=== PATIENT | male | born 1945 | race Caucasian/White ===

== ENCOUNTER 2021-04-27 07:44 | Day surgery (SDC) | payer OTHER ==
[~2021-04-27] VITALS: Ht 172.7 cm; Wt 69.0 kg
[~2021-04-27 07:44] MED LIST: Aspir 8181 MG PO; DOCU100 PO; FAMO20 PO; FURO40 PO; GLUCOSAMINE-CH1 EA48 PO; HYDACE10B PO; MULVITA PO; OMEGA-3 FISH O1 EAC6 PO; OS-CAL PO; PRAV20 PO; QUNOL PO; TERA5 PO; VERA240ER PO; VITAMIN D31000 UNI1 PO
--- NOTE | 2021-04-27 10:52 | NUR ---
PT VERBALIZES UNDERSTANDING WRITTEN AND VERBAL ORDERS. PT IV DC'D. CATH INTACT. PRESSURE DSG IN PLACE. NO BLEEDING NOTED. R SIDED PERMA CATH REMAINS STABLE/CLEAR. VSS. NADN. PT DC TO HOME VIA WC BY S/O.
== END 2021-04-27 11:00 | disposition home or self-care (01) ==
LOC: MHTC 07:44
DX: Z45.2 Encounter for adjustment and management of vascular access device (principal); I12.0 Hypertensive chronic kidney disease with stage 5 chronic kidney disease or end stage renal disease; N18.6 End stage renal disease; D63.1 Anemia in chronic kidney disease; K21.9 Gastro-esophageal reflux disease without esophagitis; E78.5 Hyperlipidemia, unspecified; Z88.0 Allergy status to penicillin; Z79.82 Long term (current) use of aspirin; Z79.899 Other long term (current) drug therapy; Z20.822 Contact with and (suspected) exposure to COVID-19
CPT/HCPCS: 36558; 76937; 77001; 99152; C1750; C1769; C1894; J1644; J2250; J3010; J7040; J7050

== ENCOUNTER 2024-05-28 08:49 | Day surgery (SDC) | payer OTHER ==
[~2024-05-28] VITALS: Ht 172.7 cm; Wt 71.6 kg
[~2024-05-28 08:49] MED LIST changes: +ACYC800 PO; +BANOPHEN25 MG PO; +CITALOPRAM HBR10 MG PO; +LOSA25 PO; +Lactated Ringer's 1,000 ML IV ONE; +OMEP20ER PO; +ONDA4ODT; +ONDA4ODT MM; +Vitamin B-Comp1 EACH PO; +propofoL 40 ML IV ONE
[2024-05-28] MEDS ORDERED: UBID10 (09:25)
[2024-05-28] MEDS ORDERED: BISA5EC (09:25)
[2024-05-28] MEDS ORDERED: [UNRECOGNIZED DRUG - OTHER] (09:26)
[2024-05-28] MEDS ORDERED: Clonazepam0.25 MG (09:31)
[2024-05-28] MEDS ORDERED: Lactated Ringer's 1,000 ML IV ONE (10:17)
[2024-05-28] MEDS ORDERED: NS 500 ML IV ONE (10:17)
[2024-05-28 11:28] VITALS: BP 110/68
== END 2024-05-28 11:20 | disposition home or self-care (01) ==
LOC: ORSCSDS 08:49
PROVIDERS: Specialist
PROC: 0DB68ZX Excision of Stomach, Via Natural or Artificial Opening Endoscopic, Diagnostic (ICD-10-PCS; principal; 2024-05-28 10:15)
PROC: 0DB58ZX Excision of Esophagus, Via Natural or Artificial Opening Endoscopic, Diagnostic (ICD-10-PCS; principal; 2024-05-28 10:15)
DX: K21.9 Gastro-esophageal reflux disease without esophagitis (principal); K44.9 Diaphragmatic hernia without obstruction or gangrene; I12.0 Hypertensive chronic kidney disease with stage 5 chronic kidney disease or end stage renal disease; N18.6 End stage renal disease; Z99.2 Dependence on renal dialysis; Q87.81 Alport syndrome; E78.5 Hyperlipidemia, unspecified; Z79.82 Long term (current) use of aspirin; Z79.899 Other long term (current) drug therapy
CPT/HCPCS: 88305; 88342; J2704; J7120

== ENCOUNTER 2025-04-17 10:53 | Emergency (ER) | payer OTHER ==
[~2025-04-17] VITALS: Ht 172.7 cm; Wt 69.8 kg
[~2025-04-17 10:53] MED LIST changes: +BISA5EC; +Clonazepam0.25 MG; -Lactated Ringer's 1,000 ML IV ONE; +UBID10; +[UNRECOGNIZED DRUG - OTHER]; -propofoL 40 ML IV ONE
[2025-04-17 11:41] LABS: BASOPHILS ABSOLUTE AUTO 0.02 K/mm3 (0.00-0.23); BASOPHILS PERCENT AUTO 0 % (0-2); EOSINOPHILS ABSOLUTE AUTO 0.01 K/mm3 (0.00-0.68); EOSINOPHILS PERCENT AUTO 0 % (0-6); Hematocrit 37.7 % (37.0-53.0); IMMATURE GRAN ABSOLUTE AUTO 0.07 K/mm3 (0.00-0.10); IMMATURE GRAN PERCENT AUTO 1 % (0-1); LYMPHOCYTES ABSOLUTE AUTO 0.32 K/mm3 (0.84-5.20); LYMPHOCYTES PERCENT AUTO 5 % (21-46); MONOCYTES ABSOLUTE AUTO 0.98 K/mm3 (0.16-1.47); MONOCYTES PERCENT AUTO 16 % (4-13); Mean Corpuscular HGB 32.6 pg (26.0-34.0); Mean Corpuscular HGB Conc 34.5 g/dL (31.5-36.5); Mean Corpuscular Volume 95 fL (80-100); Mean Platelet Volume 9.8 fL (9.1-12.4); NEUTROPHILS ABSOLUTE AUTO 4.71 K/mm3 (1.96-9.15); NEUTROPHILS PERCENT AUTO 77 % (41-73); Platelet Count 274 K/mm3 (150-400); RDW Coefficient Variation 12.5 % (11.7-14.2); RDW Standard Deviation 43.3 fL (35.1-46.3); Red Blood Cell Count 3.99 M/mm3 (4.30-5.90); White Blood Cell Count 6.11 K/mm3 (4.00-11.30)
[2025-04-17 12:19] LABS: Albumin, Blood 3.1 g/dL (3.4-5.0); Albumin/Globulin Ratio 0.9 (0.8-1.8); Bilirubin, Total 0.4 mg/dL (0.1-1.0); Bun/Creatinine Ratio 6.2 (12.0-20.0); Calcium, Blood 9.6 mg/dL (8.5-10.1); Creatinine, Blood 9.6 mg/dL (0.60-1.20); Globulin, Blood 3.6 g/dL (2.2-4.0); Potassium, Blood 3.5 mmol/L (3.5-5.5); Total Protein, Blood 6.7 g/dL (6.4-8.2)
[2025-04-17] MEDS ORDERED: Lactated Ringer's 1,000 ML IV ONE (13:15)
[2025-04-17] MEDS ORDERED: Loperamide HCl 2 MG Cap PO ONE (13:15)
--- NOTE | 2025-04-17 13:54 | NUR ---
DIALYSIS NURSE CALLED TO PT RM TO TAKE EFFLUENT FLUID SAMPLE FROM PTS PERITONEAL DIALYSIS PORT. PT SITTING UP IN BED WITH CARE TEAM AT BEDSIDE. OBTAINED APPROX 10-20ML FLUID FROM PD CATHETER AND SENT OFF TO LAB. UNABLE TO GAIN ADDITIONAL FLUID HAVING PT STAND AND REPOSITION. FLUID IS CLEAR AND FREE OF ANY FIBRINS. FOLLOWED ASEPTIC PROTOCOL DURING PROCEDURE.
[2025-04-17 14:30] LABS: Automated BF WBC Count 0.035 K/mm3 (0-999)
[2025-04-17 14:43] LABS: Protein, Body Fluid 0.6 g/dL
[2025-04-17] MEDS ORDERED: rOPINIRole HCl 0.25 MG Tab PO ONE (14:50)
[2025-04-17 15:15] VITALS: BP 170/87
[2025-04-17 16:04] LABS: RBC Count, Body Fluid 8 /mm3 (0-0)
[2025-04-17 16:06] LABS: Body Fluid WBC Count 35 /mm3 (0-999)
[2025-04-17] MEDS ORDERED: PROM25 PO (16:19)
[2025-04-17] MEDS ORDERED: LOPE2C PO (16:19)
[2025-04-17 16:55] LABS: Total Cell Count, Body Fluid 100
[2025-04-17 17:00] LABS: Appearance, Body Fluid Clear (Clear); Color, Body Fluid White (None-Yellow)
== END 2025-04-17 16:33 | disposition home or self-care (01) ==
LOC: ER 10:53
PROVIDERS: Student in an Organized Health Care Education/Training Program
DX: A08.4 Viral intestinal infection, unspecified (principal); Z88.0 Allergy status to penicillin; Z79.82 Long term (current) use of aspirin; Z79.899 Other long term (current) drug therapy
CPT/HCPCS: 74177; 80053; 83690; 84157; 85025; 87070; 87075; 87077; 87186; 87205; 89051; 93005; 93010; 96360-59; 99284-25; A9270; J7120; Q9967

== ENCOUNTER → 2025-05-25 | Outpatient (CLI) | payer OTHER ==
[~2025-05-25] MED LIST changes: +LOPE2C PO; +PROM25 PO
[2025-05-25 16:39] LABS: Source, Urine Voided
[2025-05-25 17:52] LABS: Bilirubin, Urine Neg (Neg); Color, Urine Yellow (P-Yellow); Glucose Qualitative, Urine Neg (Neg); Ketones, Urine Neg (Neg); Leukocyte Esterase, Urine Neg (Neg); Protein, Urine 4+ (Neg); Specific Gravity, Urine 1.015 (1.003-1.022); Urobilinogen, Urine NORM (Normal)
[2025-05-25 18:09] LABS: Red Blood Cells, Urine 0-2 /hpf (0-2); White Blood Cells, Urine 0-2 /hpf (0-5)
== END ==
LOC: LAB SHORT 16:37 → LAB 16:37
PROVIDERS: Hospitalist
DX: R39.9 Unspecified symptoms and signs involving the genitourinary system (principal)
CPT/HCPCS: 81001

== ENCOUNTER 2025-06-03 14:34 | Emergency (ER) | payer OTHER ==
[~2025-06-03] VITALS: Ht 167.6 cm; Wt 81.7 kg
[2025-06-03] MEDS ORDERED: NS 1,000 ML IV SCH (17:35)
[2025-06-03 23:25] VITALS: BP 162/78
== END 2025-06-03 23:26 | disposition home or self-care (01) ==
LOC: ER 14:34
DX: D64.9 Anemia, unspecified (principal); K21.9 Gastro-esophageal reflux disease without esophagitis; I12.0 Hypertensive chronic kidney disease with stage 5 chronic kidney disease or end stage renal disease; N18.6 End stage renal disease; E78.5 Hyperlipidemia, unspecified; Z87.891 Personal history of nicotine dependence; Z79.899 Other long term (current) drug therapy; Z79.82 Long term (current) use of aspirin; Z88.1 Allergy status to other antibiotic agents; Z88.8 Allergy status to other drugs, medicaments and biological substances
CPT/HCPCS: 36430; 86850; 86900; 86901; 86923; 99284; A9270; J7030; P9016

== ENCOUNTER 2025-06-10 18:19 | Observation (INO) | payer OTHER ==
[~2025-06-10] VITALS: Ht 172.7 cm; Wt 67.6 kg
[2025-06-10 18:41] LABS: BASOPHILS ABSOLUTE AUTO 0.02 K/mm3 (0.00-0.23); BASOPHILS PERCENT AUTO 0 % (0-2); EOSINOPHILS ABSOLUTE AUTO 0.02 K/mm3 (0.00-0.68); EOSINOPHILS PERCENT AUTO 0 % (0-6); Hematocrit 26.6 % (37.0-53.0); Hemoglobin 8.6 g/dL (13.5-17.5); IMMATURE GRAN ABSOLUTE AUTO 0.10 K/mm3 (0.00-0.10); IMMATURE GRAN PERCENT AUTO 1 % (0-1); LYMPHOCYTES ABSOLUTE AUTO 0.29 K/mm3 (0.84-5.20); LYMPHOCYTES PERCENT AUTO 2 % (21-46); MONOCYTES ABSOLUTE AUTO 1.06 K/mm3 (0.16-1.47); MONOCYTES PERCENT AUTO 7 % (4-13); Mean Corpuscular HGB Conc 32.3 g/dL (31.5-36.5); Mean Corpuscular Volume 97 fL (80-100); NEUTROPHILS ABSOLUTE AUTO 13.20 K/mm3 (1.96-9.15); NEUTROPHILS PERCENT AUTO 90 % (41-73); NRBC ABSOLUTE 0.00 K/mm3 (0.00-0.02); NRBC Auto 0.0 /100 WBC (0.0-0.2); Platelet Count 277 K/mm3 (150-400); RDW Coefficient Variation 13.7 % (11.7-14.2); RDW Standard Deviation 48.9 fL (35.1-46.3)
[2025-06-10 19:13] LABS: Magnesium, Blood 2.5 mg/dL (1.6-2.4)
[2025-06-10 19:23] LABS: Anion Gap 15.0 mmol/L (3-11); Blood Urea Nitrogen 61.0 mg/dL (8-24); CO2, Blood 24.0 mmol/L (21-32); Calcium, Blood 8.9 mg/dL (8.5-10.1); Chloride, Blood 101.0 mmol/L (98-108); Creatinine, Blood 10.3 mg/dL (0.60-1.20); Glucose, Blood 115.0 mg/dL (70-99); Potassium, Blood 4.6 mmol/L (3.5-5.5); Sodium, Blood 135.0 mmol/L (136-145)
[2025-06-10 23:11] VITALS: BP 148/83
== END 2025-06-10 23:19 | disposition home or self-care (01) ==
LOC: ER 18:19 → PCU 18:20 → ER 18:20 → ERHOLD 18:20
PROVIDERS: Emergency Medicine; ADMIT Internal Medicine
DX: R07.9 Chest pain, unspecified (principal); R79.89 Other specified abnormal findings of blood chemistry; I12.0 Hypertensive chronic kidney disease with stage 5 chronic kidney disease or end stage renal disease; N18.6 End stage renal disease; Z99.2 Dependence on renal dialysis; R78.5 Finding of other psychotropic drug in blood; E55.9 Vitamin D deficiency, unspecified; D63.1 Anemia in chronic kidney disease; K21.9 Gastro-esophageal reflux disease without esophagitis; Z79.82 Long term (current) use of aspirin; Z79.899 Other long term (current) drug therapy; Z88.0 Allergy status to penicillin; Z88.8 Allergy status to other drugs, medicaments and biological substances
CPT/HCPCS: 71045; 80048; 83735; 84484; 85025; 93005; 93010; 99285-25; A9270; G0378

== ENCOUNTER → 2025-08-16 | Outpatient (CLI) | payer OTHER ==
[~2025-08-16] MED LIST changes: -BISA5EC; +BISA5EC PO; +CLON.5; +Calcium Acetat667 MG PO; +Norvasc10 MG PO; +OXYB5 PO; -UBID10; +UBID10 PO
[2025-08-16 17:26] LABS: Source, Urine Clean Catch
[2025-08-16 17:50] LABS: Bilirubin, Urine Neg (Neg); Color, Urine Yellow (P-Yellow); Glucose Qualitative, Urine Neg (Neg); Ketones, Urine Neg (Neg); Leukocyte Esterase, Urine Neg (Neg); Protein, Urine 4+ (Neg); Specific Gravity, Urine 1.010 (1.003-1.022); Urobilinogen, Urine NORM (Normal)
[2025-08-16 18:07] LABS: White Blood Cells, Urine 0-2 /hpf (0-5)
== END ==
LOC: LAB 17:18 → LAB SHORT 17:18
PROVIDERS: Hospitalist
DX: R39.9 Unspecified symptoms and signs involving the genitourinary system (principal)
CPT/HCPCS: 81001

== ENCOUNTER 2025-08-23 12:59 | Inpatient (IN) | payer OTHER, MEDICARE ==
[~2025-08-23] VITALS: Ht 172.7 cm; Wt 65.2 kg
[~2025-08-23 12:59] MED LIST changes: -CLON.5; -Calcium Acetat667 MG PO; -Norvasc10 MG PO; -OXYB5 PO
[2025-08-23 13:32] LABS: BASOPHILS ABSOLUTE AUTO 0.02 K/mm3 (0.00-0.23); BASOPHILS PERCENT AUTO 0 % (0-2); EOSINOPHILS ABSOLUTE AUTO 0.22 K/mm3 (0.00-0.68); EOSINOPHILS PERCENT AUTO 3 % (0-6); Hematocrit 26.4 % (37.0-53.0); Hemoglobin 8.8 g/dL (13.5-17.5); IMMATURE GRAN ABSOLUTE AUTO 0.08 K/mm3 (0.00-0.10); IMMATURE GRAN PERCENT AUTO 1 % (0-1); LYMPHOCYTES ABSOLUTE AUTO 0.36 K/mm3 (0.84-5.20); LYMPHOCYTES PERCENT AUTO 5 % (21-46); MONOCYTES ABSOLUTE AUTO 0.76 K/mm3 (0.16-1.47); MONOCYTES PERCENT AUTO 10 % (4-13); Mean Corpuscular HGB Conc 33.3 g/dL (31.5-36.5); Mean Corpuscular Volume 90 fL (80-100); NEUTROPHILS ABSOLUTE AUTO 6.55 K/mm3 (1.96-9.15); NEUTROPHILS PERCENT AUTO 82 % (41-73); NRBC ABSOLUTE 0.00 K/mm3 (0.00-0.02); NRBC Auto 0.0 /100 WBC (0.0-0.2); Platelet Count 228 K/mm3 (150-400); RDW Coefficient Variation 14.9 % (11.7-14.2); RDW Standard Deviation 49.1 fL (35.1-46.3)
[2025-08-23] MEDS ORDERED: Norvasc10 MG PO (13:32)
[2025-08-23] MEDS ORDERED: Calcium Acetat667 MG PO (13:33)
[2025-08-23] MEDS ORDERED: CLON.5 PO (13:34)
[2025-08-23] MEDS ORDERED: OXYB5 PO (13:36)
[2025-08-23 14:35] LABS: Alanine Aminotransfer (ALT/SGP 19.0 U/L (12-78); Albumin, Blood 2.7 g/dL (3.4-5.0); Albumin/Globulin Ratio 0.9 (0.8-1.8); Anion Gap 18.0 mmol/L (3-11); Aspartate Aminotrans (AST/SGOT 17.0 U/L (12-37); Bilirubin, Total 0.4 mg/dL (0.1-1.0); Blood Urea Nitrogen 84.0 mg/dL (8-24); CO2, Blood 21.0 mmol/L (21-32); Calcium, Blood 9.7 mg/dL (8.5-10.1); Chloride, Blood 100.0 mmol/L (98-108); Creatinine, Blood 14.4 mg/dL (0.60-1.20); Globulin, Blood 2.9 g/dL (2.2-4.0); Glucose, Blood 110.0 mg/dL (70-99); Potassium, Blood 4.2 mmol/L (3.5-5.5); Sodium, Blood 135.0 mmol/L (136-145); Total Protein, Blood 5.6 g/dL (6.4-8.2)
[2025-08-23] MEDS ORDERED: HYDROcodone 5-APAP 325 TAB PO PRN ×2 (16:35→18:25)
[2025-08-23] MEDS ORDERED: Ondansetron HCl 2 MG / ML 2ML Vial IV PRN ×2 (16:50)
[2025-08-23] MEDS ORDERED: FLU VACC TS2025(65UP)/MF59C/PF 45 MCG/0.5 ML SYRINGE IM SCH (17:00)
[2025-08-23] MEDS ORDERED: Calcium Acetate 667 MG Gel Cap PO SCH (17:30)
--- NOTE | 2025-08-23 18:21 | NUR ---
PT ARRIVED FROM ER ON [facility]. HE AMBULATED FROM [facility] TO BED. OBTAINED VS AND WEIGHT. NO NEEDS OR CONCERNS NOTED @ THIS TIME. PT IS A&Ox4 AND ABLE TO MAKE NEEDS KNOWN. HE IS ON RA W/O2 SATS > 92%. BED IN LOW POSITION, CALL LIGHT AND PERSONAL BELONGINGS IN REACH.
[2025-08-23 18:30] VITALS: BP 151/88
[2025-08-23] MEDS ORDERED: Heparin Sodium,Porcine 5,000 UNIT/0.5 ML SDV SC SCH (21:00)
[2025-08-23 21:01] VITALS: BP 167/86
--- NOTE | 2025-08-23 21:16 | NUR ---
PD EXIT SITE DRESSED ASEPTICALLY WITH EXSEPT SOLUTION; NO DRAINAGE OR SIGNS OF INFECTION NOTED; PACKAGE WINDER ACCORDING TO DR'S ORDER; PD TX STARTED WITH NO ISSUE; OBTAINED EFFLUENT SAMPLE AND SENT TO LAB. THIS RN LEFT THE ROOM WITH PRIMARY RN AT BEDSIDE.
[2025-08-23 21:34] LABS: RBC Count, Body Fluid 0 /mm3 (0-0)
[2025-08-23 21:35] LABS: Color, Body Fluid No color (None-Yellow)
[2025-08-23 23:41] LABS: Source, Urine Clean Catch
[2025-08-23 23:44] LABS: Bilirubin, Urine Neg (Neg); Glucose Qualitative, Urine 1+ (Neg); Ketones, Urine Neg (Neg); Leukocyte Esterase, Urine Neg (Neg); Protein, Urine 4+ (Neg); Specific Gravity, Urine 1.010 (1.003-1.022); Urobilinogen, Urine NORM (Normal)
[2025-08-24 00:06] LABS: Color, Urine Yellow (P-Yellow); White Blood Cells, Urine 0-2 /hpf (0-5)
[2025-08-24 00:29] VITALS: BP 163/91
[2025-08-24 04:21] LABS: BASOPHILS ABSOLUTE AUTO 0.03 K/mm3 (0.00-0.23); BASOPHILS PERCENT AUTO 0 % (0-2); EOSINOPHILS ABSOLUTE AUTO 0.11 K/mm3 (0.00-0.68); EOSINOPHILS PERCENT AUTO 2 % (0-6); Hematocrit 25.5 % (37.0-53.0); Hemoglobin 8.1 g/dL (13.5-17.5); IMMATURE GRAN ABSOLUTE AUTO 0.06 K/mm3 (0.00-0.10); IMMATURE GRAN PERCENT AUTO 1 % (0-1); LYMPHOCYTES ABSOLUTE AUTO 0.12 K/mm3 (0.84-5.20); LYMPHOCYTES PERCENT AUTO 2 % (21-46); MONOCYTES ABSOLUTE AUTO 0.57 K/mm3 (0.16-1.47); MONOCYTES PERCENT AUTO 8 % (4-13); Mean Corpuscular HGB Conc 31.8 g/dL (31.5-36.5); Mean Corpuscular Volume 93 fL (80-100); NEUTROPHILS ABSOLUTE AUTO 6.02 K/mm3 (1.96-9.15); NEUTROPHILS PERCENT AUTO 87 % (41-73); NRBC ABSOLUTE 0.00 K/mm3 (0.00-0.02); NRBC Auto 0.0 /100 WBC (0.0-0.2); Platelet Count 219 K/mm3 (150-400); RDW Coefficient Variation 15.0 % (11.7-14.2); RDW Standard Deviation 51.5 fL (35.1-46.3)
[2025-08-24 04:23] VITALS: BP 139/76
[2025-08-24 04:51] LABS: Ferritin, Serum 859 ng/mL (26-388); Thyroid Stimulating Hormone 7.370 uIU/mL (0.360-4.800); Total Iron Binding Capacity 223 ug/dL (250-450)
[2025-08-24 05:03] LABS: Albumin, Blood 2.5 g/dL (3.4-5.0); Anion Gap 14 mmol/L (3-11); Blood Urea Nitrogen 73 mg/dL (8-24); CO2, Blood 25 mmol/L (21-32); Calcium, Blood 9.4 mg/dL (8.5-10.1); Chloride, Blood 101 mmol/L (98-108); Creatinine, Blood 13.00 mg/dL (0.60-1.20); Glucose, Blood 123 mg/dL (70-99); Phosphorus, Blood 6.9 mg/dL (2.5-4.9); Potassium, Blood 4.0 mmol/L (3.5-5.5); Sodium, Blood 136 mmol/L (136-145)
--- NOTE | 2025-08-24 08:01 | NUR ---
SHIFT SUMMARY: PT IS A&OX4, VERY [place], HAS BILATERAL HEARING AIDES. PT IS VERY ANXIOUS, BUT IS PLEASANT AND COOPERATIVE WITH CARE. ELEVATED BP ON RA. SR-ST 90'S-110'S. C/O PAIN TO HIS LOW BACK, LEFT SIDE>RIGHT, MEDICATED PER EMAR. MED REC NOT COMPLETED D/T PT UNSURE OF ALL HIS MEDICATIONS, HE SAID HIS SUSAN HAS A LIST SHE WOULD BRING IN TODAY. PD RUNNING THIS SHIFT. TOLERATING A RENAL DIET. PT WAS A SBA AT BEDSIDE TO USE HIS URINAL. HE VOIDED 100ML, DARK YELLOW URINE. NO BM THIS SHIFT, REQUESTED TO NOT TAKE HIS PM BOWEL MEDICATION. FREQUENTLY REPOSITIONS SELF IN BED. BED IN LOWEST POSITION, CALL LIGHT WITHIN REACH.
[2025-08-24 08:18] VITALS: BP 151/81
[2025-08-24] MEDS ORDERED: Vitamin B Cmplx/Vit C/Folic Ac 1 Tab PO SCH (09:00)
--- NOTE | 2025-08-24 09:51 | NUR ---
Pt. is awake in bed and welcomes my visit. Pt. is pleasant. Facilitated a life review and considered matters of gee and belief. Listen with empathy and interest. Pt. displays evidence of having a positive spirit, but is a little unsettled about the source of his bleeding. Spouse arrived at bedside. Prayed with the Pt. Pt. verbalized gratitude fo rhte spiritual care visit and welcomed this healthcare economics consultant to return.
[2025-08-24] MEDS ORDERED: NARCAN4 M1 (12:35)
[2025-08-24] MEDS ORDERED: MIRALAX17 GM PO (12:41)
[2025-08-24 12:49] VITALS: BP 154/96
--- NOTE | 2025-08-24 13:52 | NUR ---
TX COMPLETED WITH MANAGED ALARM; NO COMPLAINTS NOTED.
[2025-08-24 15:25] LABS: Stool Occult Blood Guaiac 1 Neg (Neg)
[2025-08-24 16:12] LABS: Hematocrit 26.0 % (37.0-53.0); Hemoglobin 8.4 g/dL (13.5-17.5)
[2025-08-24 17:01] VITALS: BP 158/94
--- NOTE | 2025-08-24 18:22 | NUR ---
PT IS A&Ox4 AND ABLE TO MAKE NEEDS KNOWN. HE IS ON RA W/O2 SATS > 92%. HE IS A SBA FOR AMBULATION. HE RECEIVES PD NIGHTLY PER ORDERS. HE WILL BE NOTHING BY MOUTH @ [place] EXCEPT FOR WATER FOR THE 2ND PART OF HIS STRESS TEST TOMORROW. NO NEEDS OR CONCERNS NOTED @ THIS TIME. BED IN LOW POSITION, CALL LIGHT AND PERSONAL BELONGINGS IN REACH.
--- NOTE | 2025-08-24 20:28 | NUR ---
PATIENT'S VSS STABLE FOR TX; RESEARCH SCHOLAR ACCORDING TO DR's ORDER; PD EXIT SITE DRESSED ASEPTICALLY WITH EXSEPT SOLUTION; PATIENT DENIES PAIN, NO DISCHARGES NOTED OR ANY SIGNS OF INFECTION. PD TX STARTED APPROX AT 2014;
[2025-08-24 20:56] VITALS: BP 165/93
[2025-08-25] VITALS (7 sets, daily range): BP systolic 156–172; BP diastolic 81–99
[2025-08-25 05:40] LABS: Albumin, Blood 2.5 g/dL (3.4-5.0); Anion Gap 14 mmol/L (3-11); Blood Urea Nitrogen 75 mg/dL (8-24); CO2, Blood 26 mmol/L (21-32); Calcium, Blood 9.1 mg/dL (8.5-10.1); Chloride, Blood 101 mmol/L (98-108); Creatinine, Blood 13.50 mg/dL (0.60-1.20); Glucose, Blood 111 mg/dL (70-99); Phosphorus, Blood 7.8 mg/dL (2.5-4.9); Potassium, Blood 3.9 mmol/L (3.5-5.5); Sodium, Blood 137 mmol/L (136-145)
--- NOTE | 2025-08-25 07:11 | NUR ---
PT IN BED RESTING / AWAKE. VENETIE [place] WITHOUT HEARING AIDS. CCPD THERAPY COMPLETED ORDERED. PT AESEPTICALLY DISCONNECTED AND CAPPED. CYCLER STRIPPED AND CLEANED.
--- NOTE | 2025-08-25 07:40 | NUR ---
SHIFT SUMMARY: PT IS A&OX4, VERY [place], HAS BILATERAL HEARING AIDES. PT IS VERY ANXIOUS, BUT IS PLEASANT AND COOPERATIVE WITH CARE. HTN 172/93, PRN HYDRALAZINE ADMINISTERED, ON RA. SR-ST 80'S-100'S. C/O PAIN TO HIS LOW BACK, LEFT SIDE>RIGHT, MEDICATED PER EMAR. PD RUNNING THIS SHIFT. TOLERATING A RENAL DIET, H2O ONLY AFTER MN FOR 2ND PART OF STRESS TEST TODAY. PT WAS A SBA TO BR. BRANDT USES THE URINAL AT BEDSIDE INDEPENDENTLY. NO BM THIS SHIFT, REQUESTED TO NOT TAKE HIS PM BOWEL MEDICATION. FREQUENTLY REPOSITIONS SELF IN BED. BED IN LOWEST POSITION, CALL LIGHT WITHIN REACH.
[2025-08-25 09:37] LABS: Hematocrit 25.9 % (37.0-53.0); Hemoglobin 8.4 g/dL (13.5-17.5)
--- NOTE | 2025-08-25 11:20 | NUR ---
Pt. is awake and welcomes my visit. Pt. is known to this business law teacher from a previous visit so rapport is re-established quickly. Facilitated an update. Listened with interest and empathy. Considered matters of gee and belief. Pt. displayed evidence of trust and relational connection. Some more life review takes palce as well as prayer. Pt. verbalized gratitude fo rthe spiritual care visit.
[2025-08-25] MEDS ORDERED: Epoetin Alfa-EPBX 10,000 Unit/ML 1ML Vial SC SCH (16:00)
[2025-08-25] MEDS ORDERED: Calcium Acetate 667 MG Gel Cap PO SCH (17:30)
--- NOTE | 2025-08-25 18:07 | NUR ---
END OF SHIFT SUMMARY THE PT IS A&OX4, SBA IN THE ROOM, AND IS ABLE TO MAKE HIS NEEDS KNOWN. THE PT FINISHED HIS STRESS TEST TODAY AND WAS CLEARED FROM DR. PATRICIA FOR DR. SNIDER TO DO HIS UPPER AND LOWER SCOPE. PT WILL BEGIN CLEAR LIQUID DIET IN THE MORNING. PLANNING TO START BOWEL PREPPING THE EVENING OF 08/26. DR. BARRIENTOS REQUESTED THE PT TO HAVE A STRAIGHT CATH D/T DISTENTION OF THE BLADDER SHOWN IN THE CT. 1L OF URINE PULLED FROM THE PT. ON TELE THE PT HAS BEEN SR 70'S-90'S. BP STABLE. O2 >93% ON RA. THE PT IS W/O COMPLAINTS. THIS RN ATTEMPTED TO COMPLETE THE PT'S HOME MEDICATION REC AND THE PT'S STATED SHE WILL BRING IN A MEDICATION LIST FROM HIS PCP. SEE NOTES FOR UPDATES.
--- NOTE | 2025-08-25 18:46 | NUR ---
PATIENT AWAKE / ALERT STANDING BEDSIDE BED UPON FIRST ENCOUNTER. NO COMPLAINTS VERBALIZED. PLEASANT AND COMVERSANT. CYCLER STRUNG, PRIMED AND PROGRAMMED PER ORDERS. PT AESEPTICALLY CONNECTED WHEN PRIME COMPLETE AND OVERNIGHT THERAPY STARTED. EXIT SITE CARE DONE. SITE CLEAR, DRY AND NON-TENDER. NEW STERILE DRESSING APPLIED WITH 2 STRAIN RELIEFS.
[2025-08-26 03:47] VITALS: BP 153/87
[2025-08-26 04:06] LABS: BASOPHILS ABSOLUTE AUTO 0.03 K/mm3 (0.00-0.23); BASOPHILS PERCENT AUTO 0 % (0-2); EOSINOPHILS ABSOLUTE AUTO 0.49 K/mm3 (0.00-0.68); EOSINOPHILS PERCENT AUTO 6 % (0-6); Hematocrit 27.9 % (37.0-53.0); Hemoglobin 8.9 g/dL (13.5-17.5); IMMATURE GRAN ABSOLUTE AUTO 0.13 K/mm3 (0.00-0.10); IMMATURE GRAN PERCENT AUTO 2 % (0-1); LYMPHOCYTES ABSOLUTE AUTO 0.18 K/mm3 (0.84-5.20); LYMPHOCYTES PERCENT AUTO 2 % (21-46); MONOCYTES ABSOLUTE AUTO 0.96 K/mm3 (0.16-1.47); MONOCYTES PERCENT AUTO 12 % (4-13); Mean Corpuscular HGB Conc 31.9 g/dL (31.5-36.5); Mean Corpuscular Volume 95 fL (80-100); NEUTROPHILS ABSOLUTE AUTO 6.00 K/mm3 (1.96-9.15); NEUTROPHILS PERCENT AUTO 77 % (41-73); NRBC ABSOLUTE 0.00 K/mm3 (0.00-0.02); NRBC Auto 0.0 /100 WBC (0.0-0.2); Platelet Count 213 K/mm3 (150-400); RDW Coefficient Variation 14.9 % (11.7-14.2); RDW Standard Deviation 51.7 fL (35.1-46.3)
[2025-08-26 04:48] LABS: Albumin, Blood 2.4 g/dL (3.4-5.0); Anion Gap 13 mmol/L (3-11); Blood Urea Nitrogen 66 mg/dL (8-24); CO2, Blood 27 mmol/L (21-32); Calcium, Blood 9.1 mg/dL (8.5-10.1); Chloride, Blood 102 mmol/L (98-108); Creatinine, Blood 14.00 mg/dL (0.60-1.20); Glucose, Blood 93 mg/dL (70-99); Phosphorus, Blood 7.1 mg/dL (2.5-4.9); Potassium, Blood 4.1 mmol/L (3.5-5.5); Sodium, Blood 138 mmol/L (136-145)
--- NOTE | 2025-08-26 07:24 | NUR ---
SHIFT SUMMARY: PT A&OX4 CALM AND COOPERATIVE. ABLE TO MAKE NEEDS KNOWN AND CALLS APPROPRIATELY. SBP 150S, HR SR 70S-80S. MAINTAINED >92% ON RA. PT OLIGURIC T/O SHIFT. BLADDER SCAN PERFORMED X2. HIGHEST BLADDER SCAN AMOUNT 294. SBA TO BR. PLAN IS FOR UPPER AND LOWER SCOPE. START BOWEL PREP TODAY. BED IS LOW AND LOCKED. CALL LIGHT WITHIN REACH.
[2025-08-26 08:07] VITALS: BP 162/93
[2025-08-26] MEDS ORDERED: Naloxone HCL 4 MG SPRAY (1 UNIT) PRN (12:50)
[2025-08-26] MEDS ORDERED: GLUCHON PO (13:23)
[2025-08-26] MEDS ORDERED: TERA5 PO (13:24)
[2025-08-26 15:15] VITALS: BP 157/93
--- NOTE | 2025-08-26 16:53 | NUR ---
END OF SHIFT SUMMARY THE PT IS A&OX4, CALLS APPROPRAITELY, AND MAKES HIS NEED KNOWN. THE PT IS IND IN THE ROOM AND CALLS WITH HIS NEEDS. HE IS ON A CLEAR LIQUID DIET AND WILL START BOWEL PREPTONIGHT FOR HIS EGD AND COLONOSCOPY 08/27. THE PT HAS HAD MINIMAL TO NO URINE OUTPUT. BLADDER SCANS PREFORMED TO WATCH BLADDER. HE IS MEDICAL STATUS WITHOUT TELE. BP STABLE. HE IS ON RA AND DENIES ANY SOB. SP02 >93% ON RA. NO ACUTE EVENTS TODAY. SEE NOTES FOR UPDATES.
[2025-08-26] MEDS ORDERED: Lidocaine 2% Jelly Uro-Jet UR ONE (17:10)
--- NOTE | 2025-08-26 18:47 | NUR ---
PT TRANSFERING TO ROOM 344
--- NOTE | 2025-08-26 18:52 | NUR ---
PT ARRIVED FROM [facility] TO ROOM 344. REPORT RECIEVED FROM OSIRIS VELA RN.
[2025-08-26 19:26] VITALS: BP 183/90
[2025-08-27 04:02] VITALS: BP 148/87
[2025-08-27 05:12] LABS: BASOPHILS ABSOLUTE AUTO 0.03 K/mm3 (0.00-0.23); BASOPHILS PERCENT AUTO 0 % (0-2); EOSINOPHILS ABSOLUTE AUTO 0.18 K/mm3 (0.00-0.68); EOSINOPHILS PERCENT AUTO 2 % (0-6); Hematocrit 27.9 % (37.0-53.0); Hemoglobin 8.9 g/dL (13.5-17.5); IMMATURE GRAN ABSOLUTE AUTO 0.15 K/mm3 (0.00-0.10); IMMATURE GRAN PERCENT AUTO 2 % (0-1); LYMPHOCYTES ABSOLUTE AUTO 0.20 K/mm3 (0.84-5.20); LYMPHOCYTES PERCENT AUTO 2 % (21-46); MONOCYTES ABSOLUTE AUTO 0.90 K/mm3 (0.16-1.47); MONOCYTES PERCENT AUTO 11 % (4-13); Mean Corpuscular HGB Conc 31.9 g/dL (31.5-36.5); Mean Corpuscular Volume 94 fL (80-100); NEUTROPHILS ABSOLUTE AUTO 7.05 K/mm3 (1.96-9.15); NEUTROPHILS PERCENT AUTO 83 % (41-73); NRBC ABSOLUTE 0.02 K/mm3 (0.00-0.02); NRBC Auto 0.2 /100 WBC (0.0-0.2); Platelet Count 223 K/mm3 (150-400); RDW Coefficient Variation 15.1 % (11.7-14.2); RDW Standard Deviation 52.0 fL (35.1-46.3)
--- NOTE | 2025-08-27 05:44 | NUR ---
SHIFT SUMMARY PT IS ALERT AND ORIENTED TIMES 4 . PT ADMITTED FOR HYPOTENSION. PT IS DNR. PT HAS HAD STRAIGHT CATH AND IS STRAIGHT CATH FOR RETENTION.. PT IS ON ROOM AIR. PT IS RECEPTIVE TO CARE AND APPEARED TO SLEEP THROUGH THE NIGHT WITHOUT ISSUE. CALL LIGHT WITHIN REACH, RAILS TIMES 2, BED IN LOW POSITION
[2025-08-27 06:09] LABS: Albumin, Blood 2.5 g/dL (3.4-5.0); Anion Gap 15 mmol/L (3-11); Blood Urea Nitrogen 64 mg/dL (8-24); CO2, Blood 27 mmol/L (21-32); Calcium, Blood 9.8 mg/dL (8.5-10.1); Chloride, Blood 100 mmol/L (98-108); Creatinine, Blood 13.70 mg/dL (0.60-1.20); Glucose, Blood 118 mg/dL (70-99); Phosphorus, Blood 5.7 mg/dL (2.5-4.9); Potassium, Blood 3.6 mmol/L (3.5-5.5); Sodium, Blood 138 mmol/L (136-145)
[2025-08-27 07:28] VITALS: BP 149/75
[2025-08-27] MEDS ORDERED: Cholecalciferol 1000 Unit Tablet (=25MCG) PO SCH (09:00)
[2025-08-27] MEDS ORDERED: Polyethylene Glycol 3350 17 gm PO SCH (09:00)
[2025-08-27] MEDS ORDERED: Multivitamins 1 Tab PO SCH (09:00)
--- NOTE | 2025-08-27 18:12 | NUR ---
SHIFT SUMMARY PT IS A/OX4. INDEPENDENT IN THE ROOM. BOWEL PREP FINISHED AROUND 1100. EDG AND COLONOSCOPY POSTPONED AT THIS TIME. DR SNIDER TO COME BACK LATER TONIGHT TO PROPOSE A PLAN ON NEW EXPECTED TIME TO HAVE THE EDG AND COLONOSCOPY DONE. PT REMAINS NPO AT THIS TIME. AT BEDSIDE. PT IS PLEASANT AND COOPERATIVE WITH CARE.
--- NOTE | 2025-08-27 18:59 | NUR ---
PT AWAKE / ALERT / SITTING UP IN BED WATCHING BALL GAME ON TV. LATE AFTERNOON SCHEDULED COLONOSCOPY CANCELLED AND RESCHEDULED FOR TOMORROW MORNING. CYCLER STRUNG / PRIMED AND PROGRAMMED PER ORDERS. WHEN PRIME COMPLETE, PT AESEPTICALLY CONNECTED AND OVERNIGHT CCPD STARTED. EXIT SITE CARE DONE. SITE CLEAR, DRY, TIGHT AND NON-TENDER. MED FLOOR STAFF AWARE OF OVERNIGHT THERAPY IN PROGRESS.
[2025-08-27 19:52] VITALS: BP 168/96
[2025-08-28] VITALS (39 sets, daily range): BP systolic 109–177; BP diastolic 58–110
--- NOTE | 2025-08-28 03:41 | NUR ---
Spoke with [facility] associate director financial aid about disconnecting PT from PD unit. Unit states dialysis complete. Was informed that some one would be in after 7am to disconnect from unit. Should not cause any issues being hooked up to the machine until then. Informed charge nurse.
--- NOTE | 2025-08-28 06:30 | NUR ---
SHIFT SUMMARY: Pt is admitted for hypotension and is a DNR. is alert and able to make needs known. ADLs have been IND. states his pain in anywhere from 3-5 and that is acceptable. He stated he would let this LN know if he needed something for the pain. IV to right forearm is patent with dressing that is CDI. was hooked up to peripheral dialysis through the night with no issues. Dr. Medina made a round near start of shift. Gave verbal instructions NPO but sips and chips ok. Give a round of bowel care in the AM then call him after bowel care complete.
[2025-08-28 06:35] LABS: Albumin, Blood 2.6 g/dL (3.4-5.0); Anion Gap 16 mmol/L (3-11); Blood Urea Nitrogen 62 mg/dL (8-24); CO2, Blood 27 mmol/L (21-32); Calcium, Blood 9.5 mg/dL (8.5-10.1); Chloride, Blood 102 mmol/L (98-108); Glucose, Blood 97 mg/dL (70-99); Phosphorus, Blood 5.9 mg/dL (2.5-4.9); Potassium, Blood 3.9 mmol/L (3.5-5.5); Sodium, Blood 141 mmol/L (136-145)
[2025-08-28 06:36] LABS: Creatinine, Blood 14.30 mg/dL (0.60-1.20)
[2025-08-28] MEDS ORDERED: NS 1,000 ML IV SCH (13:20)
--- NOTE | 2025-08-28 13:26 | NUR ---
08/28/25 1326 Pamela Alberts, HUMAN SERVICES PROGRAM SPECIALIST; SEE ANESTHESIA RECORDS.
[2025-08-28] MEDS ORDERED: Ipratropium/Albuterol SulF 2.5-0.5MG/3 ML Amp ONE (15:01)
[2025-08-28] MEDS ORDERED: Ipratropium/Albuterol SulF 2.5-0.5MG/3 ML Amp INH ONE (15:15)
[2025-08-28] MEDS ORDERED: FentaNYL Citrate 50 MCG/ML 2 ML Injection IV PRN (16:15)
[2025-08-28] MEDS ORDERED: HydrALAZINE HCl 20 MG / ML 1ML Vial IV PRN (16:15)
[2025-08-28] MEDS ORDERED: Albuterol 2.5 MG/3 ML VIAL INH PRN (16:15)
[2025-08-28] MEDS ORDERED: LORazepam 2 MG/ML 1ML Injection IV PRN (16:20)
[2025-08-28] MEDS ORDERED: Ipratropium/Albuterol SulF 2.5-0.5MG/3 ML Amp INH SCH (16:20)
--- NOTE | 2025-08-28 16:55 | NUR ---
DUONEB ADMINISTERED IN PROCEDURE ROOM; PT TOLERATED WELL. PORTABLE CHEST X-RAY COMPLETED IN SDS, STEP DOWN, PRIOR TO TX TO PCU.
[2025-08-28] MEDS ORDERED: MetroNIDAZOLE 500MG/NS 100 ml 100 ML IV SCH (17:00)
[2025-08-28] MEDS ORDERED: CefTRIAXone Sodium 1,000 MG in NS 100 ML IV SCH (17:00)
[2025-08-28] MEDS ORDERED: Lidocaine 2% Jelly Uro-Jet UR ONE (17:05)
--- NOTE | 2025-08-28 18:48 | NUR ---
SHIFT NOTE: PT ARRIVED TO PCU FROM DAY SURGERY WITH 3L NC TO MAINTAIN SPO2>90%. PT A/OX4 ABLE TO MAKE HIS NEEDS KNOWN. AT BEDSIDE AND UP TO DATE ON PLAN OF CARE. PT STRICT NPO UNTIL SPEECH EVAULATES. PT GIVEN PAIN MEDICATIONS AND ANTIBIOTICS PER EMAR. BEAVER PLACED FOR ACUTE RETENTION. PT RESTING COMFORTABLY WITH NO CONCERNS. CARE CONTINUES
[2025-08-28 20:24] LABS: Source, Urine Foley catheter
[2025-08-28 20:30] LABS: Bilirubin, Urine Neg (Neg); Glucose Qualitative, Urine Neg (Neg); Ketones, Urine 1+ (Neg); Leukocyte Esterase, Urine 2+ (Neg); Protein, Urine 4+ (Neg); Specific Gravity, Urine 1.010 (1.003-1.022); Urobilinogen, Urine NORM (Normal)
[2025-08-28 20:43] LABS: Color, Urine Yellow (P-Yellow)
[2025-08-29 03:15] VITALS: BP 140/79
[2025-08-29 04:57] LABS: Albumin, Blood 2.6 g/dL (3.4-5.0); Anion Gap 16 mmol/L (3-11); Blood Urea Nitrogen 60 mg/dL (8-24); CO2, Blood 27 mmol/L (21-32); Calcium, Blood 9.1 mg/dL (8.5-10.1); Chloride, Blood 103 mmol/L (98-108); Creatinine, Blood 14.60 mg/dL (0.60-1.20); Glucose, Blood 140 mg/dL (70-99); Phosphorus, Blood 6.2 mg/dL (2.5-4.9); Potassium, Blood 3.8 mmol/L (3.5-5.5); Sodium, Blood 142 mmol/L (136-145)
[2025-08-29] MEDS ORDERED: Pantoprazole Sodium 40 MG Injection IV SCH (06:00)
--- NOTE | 2025-08-29 06:22 | NUR ---
SHIFT SUMMARY PT A&O X4, CALM, COOPERATIVE TO CARE. HE IS [place]. HR IN THE 80'S-90'S, SR W/ BBB. HE DENIES ANY CP/PRESSURE, NUMB/TINGLING, SBP STABLE. AT START OF SHIFT PT ON 3L VIA NC ABLE TO TITRATE DOWN TO 1L, PT IS ON RA AT BASELINE. WOB DECREASED FROM START OF SHIFT. HE DOES GET SOB WITH EXERTION. PT HAS A WEAK, NON-PRODUCTIVE COUGH. PT NPO PENDING SPEECH THERAPY EVALUATION. PT EDUCATED ON PURPOSE FOR NPO MULTIPLE TIMES T/O NIGHT. PROVIDED PT WITH MOUTH MOISTURIZER/CHAPSTICK/SWABS TO HELP WITH DRYNESS. PT HAD PD RUNNING T/O NIGHT. PT TOLERATED WELL. PT RESTING IN BED AT THIS TIME. CALL LIGHT IN REACH. WILL MONITOR PT AND REPORT TO ONCOMING RN. PT HAD CRITICAL LAB THIS AM, CREATININE OF 14.6. ATTEMPTED TO CALL NEPHOLOGIST BUT GOT ANSWERING MACHINE. CALLED AND NOTIFIED RESIDENT.
[2025-08-29 08:15] VITALS: BP 143/85
[2025-08-29 12:15] VITALS: BP 171/87
[2025-08-29 15:59] VITALS: BP 115/67
--- NOTE | 2025-08-29 18:50 | NUR ---
PT IS A&Ox4 AND ABLE TO MAKE NEEDS KNOWN. HE IS ON RA W/O2 SATS > 92%. HE IS A SBA W/FWW FOR AMBULATION. BEAVER IN PLACE DRAINING YELLOW URINE TO GRAVITY NO NEEDS OR CONCERNS NOTED @ THIS TIME. BED IN LOW POSITION, CALL LIGHT AND PERSONAL BELONGINGS IN REACH.
[2025-08-29 20:29] VITALS: BP 153/71
[2025-08-29 23:52] VITALS: BP 158/64
[2025-08-30 03:14] VITALS: BP 162/80
[2025-08-30 05:10] LABS: Albumin, Blood 2.6 g/dL (3.4-5.0); Anion Gap 15 mmol/L (3-11); Blood Urea Nitrogen 58 mg/dL (8-24); CO2, Blood 26 mmol/L (21-32); Calcium, Blood 9.6 mg/dL (8.5-10.1); Chloride, Blood 102 mmol/L (98-108); Creatinine, Blood 14.10 mg/dL (0.60-1.20); Glucose, Blood 140 mg/dL (70-99); Phosphorus, Blood 6.0 mg/dL (2.5-4.9); Potassium, Blood 3.4 mmol/L (3.5-5.5); Sodium, Blood 140 mmol/L (136-145)
--- NOTE | 2025-08-30 06:03 | NUR ---
SHIFT SUMMARY PT IS A&O X4, ABLE TO MAKE NEEDS KNOWN, MOVING ALL EXTREMITIES WITH PURPOSE, OBEYS COMMANDS, REPOSITIONING SELF IN BED, CALLS APPROPRIATELY. SPO2 GREATER THAN 92% ON RA, NO SIGNS OF RESPIRATORY DISTRESS NOTED. CONTINUOUS TELE MONITORING, SINUS 80 S, BP STABLE WITH MAP GREATER THAN 65, CAP REFILL WNL, PULSES PRESENT T/O, DENIES CHEST P/P T/O THIS SHIFT. BOWEL TONES PRESENT IN ALL 4Q, PT DENIES FEELINGS OF NAUSEA OR CONSTIPATION. BEAVER CATH IS PATENT/DRAINING TO GRAVITY/SECURE, URINE YELLOW IN COLOR, PT RECEIVING PD T/O THE NIGHT. BED LOWEST POSITION, CALL LIGHT IN REACH, AWAITING TO GIVE REPORT TO ONCOMING RN.
[2025-08-30 08:34] VITALS: BP 170/85
[2025-08-30] MEDS ORDERED: CLON.5 PO (10:41)
[2025-08-30] MEDS ORDERED: TAMS.4ER PO (10:42)
[2025-08-30 11:39] VITALS: BP 127/90
--- NOTE | 2025-08-30 13:28 | NUR ---
DISCHARGE: PT HAS BEEN A&Ox4, AMBULATES SLOWLY AND STEADILY IN DEPT, DENIES SOB OR CP. PT HAS BEEN CLEARED FOR DISCHARGE HOME W/HOME HEALTH. BEAVER CATHETER CONTINUES IN PLACE UPON DISCHARGE. PT ASSISTED W/ DRESSING, GLASSES AND HEARING AIDES IN HIS POSSESSION. DC PAPERWORK AND INSTRUCTIONS PROVIDED TO PT AND SPOUSE, ALL QUESTIONS HAVE BEEN ANSWERED. PT ESCORTED FROM UNIT VIA W/C W/OUT INCIDENT.
== END 2025-08-30 13:30 | disposition home or self-care (01) | DRG 314 ==
LOC: ER 12:59 → PCU 13:00 → MEDS 08-25 15:36 → PCU 08-28 15:51
PROVIDERS: Emergency Medicine; Hospitalist; Internal Medicine Gastroenterology; Physician Assistant; ADMIT Internal Medicine
PROC: 3E1M39Z Irrigation of Peritoneal Cavity using Dialysate, Percutaneous Approach (ICD-10-PCS; principal; 2025-08-23)
PROC: 0T9B70Z Drainage of Bladder with Drainage Device, Via Natural or Artificial Opening (ICD-10-PCS; 2025-08-26)
PROC: 0DBL8ZZ Excision of Transverse Colon, Via Natural or Artificial Opening Endoscopic (ICD-10-PCS; 2025-08-28)
PROC: 3E03329 Introduction of Other Anti-infective into Peripheral Vein, Percutaneous Approach (ICD-10-PCS; 2025-08-28)
PROC: 0DB98ZX Excision of Duodenum, Via Natural or Artificial Opening Endoscopic, Diagnostic (ICD-10-PCS; 2025-08-28 13:00)
PROC: 0DB68ZX Excision of Stomach, Via Natural or Artificial Opening Endoscopic, Diagnostic (ICD-10-PCS; 2025-08-28 13:00)
PROC: 0DBH8ZZ Excision of Cecum, Via Natural or Artificial Opening Endoscopic (ICD-10-PCS; 2025-08-28 13:00)
DX: I95.89 Other hypotension (principal); N18.6 End stage renal disease; I12.0 Hypertensive chronic kidney disease with stage 5 chronic kidney disease or end stage renal disease; R55 Syncope and collapse; F41.9 Anxiety disorder, unspecified; I44.0 Atrioventricular block, first degree; I45.10 Unspecified right bundle-branch block; Z66 Do not resuscitate; Z99.2 Dependence on renal dialysis; E78.5 Hyperlipidemia, unspecified; K21.9 Gastro-esophageal reflux disease without esophagitis; M54.50 Low back pain, unspecified; G89.29 Other chronic pain; D63.1 Anemia in chronic kidney disease; D50.9 Iron deficiency anemia, unspecified; G25.81 Restless legs syndrome; R30.0 Dysuria; R33.8 Other retention of urine; E11.22 Type 2 diabetes mellitus with diabetic chronic kidney disease; K44.9 Diaphragmatic hernia without obstruction or gangrene; K63.5 Polyp of colon; K57.30 Diverticulosis of large intestine without perforation or abscess without bleeding; K64.8 Other hemorrhoids; Z86.73 Personal history of transient ischemic attack (TIA), and cerebral infarction without residual deficits; Z88.1 Allergy status to other antibiotic agents; Z88.8 Allergy status to other drugs, medicaments and biological substances; Z87.891 Personal history of nicotine dependence; Z79.82 Long term (current) use of aspirin; Z79.899 Other long term (current) drug therapy; Z98.890 Other specified postprocedural states
CPT/HCPCS: 36415; 51701; 71045; 71046; 74176; 78452; 80053; 80069; 81001; 82270; 82728; 83540; 83550; 83880; 84439; 84443; 84484; 85014; 85018; 85025; 87070; 87075; 87205; 88305; 88342; 89051; 92610; 93005; 93010; 93017; 93306; 94760; 94762; 96372; 96374; 96376; 99285-25; A9270; A9500; G0257; G0378; J0696; J0706; J1644; J2060; J2405; J2470; J2704; J2785; J3010; J7030; J7120; Q5106

== ENCOUNTER 2025-09-11 10:31 | Emergency (ER) | payer OTHER ==
[~2025-09-11] VITALS: Ht 172.7 cm; Wt 68.0 kg
[~2025-09-11 10:31] MED LIST changes: +CLON.5 PO; +Calcium Acetat667 MG PO; +GLUCHON PO; +MIRALAX17 GM PO; +NARCAN4 M1; +Norvasc10 MG PO; +OXYB5 PO; +TAMS.4ER PO
[2025-09-11] MEDS ORDERED: Ondansetron HCl 2 MG / ML 2ML Vial IV ONE (11:05)
[2025-09-11] MEDS ORDERED: Lidocaine 2% Jelly Uro-Jet UR ONE (11:10)
[2025-09-11 11:44] LABS: BASOPHILS ABSOLUTE AUTO 0.03 K/mm3 (0.00-0.23); BASOPHILS PERCENT AUTO 0 % (0-2); EOSINOPHILS ABSOLUTE AUTO 0.13 K/mm3 (0.00-0.68); EOSINOPHILS PERCENT AUTO 1 % (0-6); Hematocrit 31.3 % (37.0-53.0); Hemoglobin 10.3 g/dL (13.5-17.5); IMMATURE GRAN ABSOLUTE AUTO 0.09 K/mm3 (0.00-0.10); IMMATURE GRAN PERCENT AUTO 1 % (0-1); LYMPHOCYTES ABSOLUTE AUTO 0.14 K/mm3 (0.84-5.20); LYMPHOCYTES PERCENT AUTO 1 % (21-46); MONOCYTES ABSOLUTE AUTO 0.69 K/mm3 (0.16-1.47); MONOCYTES PERCENT AUTO 7 % (4-13); Mean Corpuscular HGB Conc 32.9 g/dL (31.5-36.5); Mean Corpuscular Volume 93 fL (80-100); NEUTROPHILS ABSOLUTE AUTO 9.30 K/mm3 (1.96-9.15); NEUTROPHILS PERCENT AUTO 90 % (41-73); NRBC ABSOLUTE 0.00 K/mm3 (0.00-0.02); NRBC Auto 0.0 /100 WBC (0.0-0.2); Platelet Count 225 K/mm3 (150-400); RDW Coefficient Variation 16.3 % (11.7-14.2); RDW Standard Deviation 54.9 fL (35.1-46.3)
[2025-09-11 12:04] LABS: Source, Urine Foley catheter
[2025-09-11] MEDS ORDERED: NS 250 ML IV SCH (12:10)
[2025-09-11 12:14] LABS: Bilirubin, Urine Neg (Neg); Color, Urine Red (P-Yellow); Glucose Qualitative, Urine Neg (Neg); Ketones, Urine Neg (Neg); Leukocyte Esterase, Urine 3+ (Neg); Protein, Urine 4+ (Neg); Specific Gravity, Urine 1.015 (1.003-1.022); Urobilinogen, Urine NORM (Normal)
[2025-09-11 12:24] LABS: Red Blood Cells, Urine 50-100 /hpf (0-2); White Blood Cells, Urine 50-100 /hpf (0-5)
[2025-09-11 12:25] LABS: Alanine Aminotransfer (ALT/SGP 20.0 U/L (12-78); Albumin, Blood 2.8 g/dL (3.4-5.0); Albumin/Globulin Ratio 0.8 (0.8-1.8); Anion Gap 17.0 mmol/L (3-11); Aspartate Aminotrans (AST/SGOT 23.0 U/L (12-37); Bilirubin, Total 0.4 mg/dL (0.1-1.0); Blood Urea Nitrogen 79.0 mg/dL (8-24); CO2, Blood 24.0 mmol/L (21-32); Calcium, Blood 9.8 mg/dL (8.5-10.1); Chloride, Blood 99.0 mmol/L (98-108); Creatinine, Blood 13.9 mg/dL (0.60-1.20); Globulin, Blood 3.4 g/dL (2.2-4.0); Glucose, Blood 157.0 mg/dL (70-99); Potassium, Blood 5.0 mmol/L (3.5-5.5); Sodium, Blood 135.0 mmol/L (136-145); Total Protein, Blood 6.2 g/dL (6.4-8.2)
[2025-09-11] MEDS ORDERED: CEFD300 PO (13:53)
[2025-09-11 13:56] VITALS: BP 150/87
[2025-09-15] MEDS ORDERED: BACTRIM DS TAB1 EAC3 PO (09:15)
[2025-09-15] MEDS ORDERED: SULTRISS PO (11:20)
== END 2025-09-11 14:10 | disposition home or self-care (01) ==
LOC: ER 10:31
PROVIDERS: Student in an Organized Health Care Education/Training Program
DX: T83.511A Infection and inflammatory reaction due to indwelling urethral catheter, initial encounter (principal); N30.01 Acute cystitis with hematuria; R53.83 Other fatigue; I12.0 Hypertensive chronic kidney disease with stage 5 chronic kidney disease or end stage renal disease; N18.6 End stage renal disease; Z99.2 Dependence on renal dialysis; K21.9 Gastro-esophageal reflux disease without esophagitis; E78.5 Hyperlipidemia, unspecified; Z87.891 Personal history of nicotine dependence; Z66 Do not resuscitate; Z88.1 Allergy status to other antibiotic agents; Z88.8 Allergy status to other drugs, medicaments and biological substances; Z79.899 Other long term (current) drug therapy; Z79.82 Long term (current) use of aspirin
CPT/HCPCS: 51702; 80053; 81001; 85025; 87077; 87086; 87186; 96374-59; 99283-25; A9270; J2405; J7030

== ENCOUNTER 2025-10-22 03:22 | Day surgery (SDC) | payer OTHER ==
[2025-10-19 13:29] LABS: BASOPHILS ABSOLUTE AUTO 0.03 K/mm3 (0.00-0.23); BASOPHILS PERCENT AUTO 0 % (0-2); EOSINOPHILS ABSOLUTE AUTO 0.24 K/mm3 (0.00-0.68); EOSINOPHILS PERCENT AUTO 3 % (0-6); Hematocrit 21.5 % (37.0-53.0); Hemoglobin 6.9 g/dL (13.5-17.5); IMMATURE GRAN ABSOLUTE AUTO 0.11 K/mm3 (0.00-0.10); IMMATURE GRAN PERCENT AUTO 1 % (0-1); IMMATURE RETIC FRACTION 18.00 % (2.3-16.0); LYMPHOCYTES ABSOLUTE AUTO 0.22 K/mm3 (0.84-5.20); LYMPHOCYTES PERCENT AUTO 2 % (21-46); MONOCYTES ABSOLUTE AUTO 0.95 K/mm3 (0.16-1.47); MONOCYTES PERCENT AUTO 10 % (4-13); Mean Corpuscular HGB Conc 32.1 g/dL (31.5-36.5); Mean Corpuscular Volume 98 fL (80-100); NEUTROPHILS ABSOLUTE AUTO 8.17 K/mm3 (1.96-9.15); NEUTROPHILS PERCENT AUTO 84 % (41-73); NRBC ABSOLUTE 0.00 K/mm3 (0.00-0.02); NRBC Auto 0.0 /100 WBC (0.0-0.2); Platelet Count 342 K/mm3 (150-400); RDW Coefficient Variation 15.9 % (11.7-14.2); RDW Standard Deviation 57.1 fL (35.1-46.3); RETIC HGB EQUIVALENT 35.50 pg (28.20-36.60); RETICULOCYTE ABSOLUTE 0.0699 M/mm3 (0.0200-0.1100); RETICULOCYTE COUNT PERCENT 3.19 % (0.50-2.50)
[2025-10-19 14:59] LABS: Ferritin, Serum 819.0 ng/mL (26-388); Total Iron Binding Capacity 268.0 ug/dL (250-450)
[~2025-10-22 03:22] MED LIST changes: +BACTRIM DS TAB1 EAC3 PO; +CEFD300 PO; +SULTRISS PO
[2025-10-22] MEDS ORDERED: NS 250 ML IV SCH (07:00)
[2025-10-22 07:28] VITALS: BP 158/97
[2025-10-22 07:49] VITALS: BP 161/84
[2025-10-22 09:13] VITALS: BP 158/84
[2025-10-22 09:33] VITALS: BP 164/96
[2025-10-22 10:32] VITALS: BP 158/97
== END 2025-10-22 11:12 | disposition home or self-care (01) ==
LOC: ATC 03:22 → EDSTATUS 07:30 → ATC 07:30
PROVIDERS: Hospitalist
DX: I12.0 Hypertensive chronic kidney disease with stage 5 chronic kidney disease or end stage renal disease (principal); N18.6 End stage renal disease; D63.1 Anemia in chronic kidney disease; Q87.81 Alport syndrome; K21.9 Gastro-esophageal reflux disease without esophagitis; E78.5 Hyperlipidemia, unspecified; E55.9 Vitamin D deficiency, unspecified; Z87.891 Personal history of nicotine dependence; Z79.82 Long term (current) use of aspirin; Z79.899 Other long term (current) drug therapy; Z88.0 Allergy status to penicillin; Z88.8 Allergy status to other drugs, medicaments and biological substances; Z99.2 Dependence on renal dialysis
CPT/HCPCS: 36415; 36430; 82728; 83540; 83550; 85025; 85045; 86850; 86900; 86901; 86923; J7050; P9016

== ENCOUNTER 2025-10-30 11:21 | Emergency (ER) | payer OTHER ==
[~2025-10-30] VITALS: Ht 167.6 cm; Wt 77.1 kg
[2025-10-30] MEDS ORDERED: HYDROmorphone HCl/Pf 1MG SYR IV ONE (11:40)
[2025-10-30 12:39] LABS: BASOPHILS ABSOLUTE AUTO 0.02 K/mm3 (0.00-0.23); BASOPHILS PERCENT AUTO 0 % (0-2); EOSINOPHILS ABSOLUTE AUTO 0.11 K/mm3 (0.00-0.68); EOSINOPHILS PERCENT AUTO 1 % (0-6); Hematocrit 27.9 % (37.0-53.0); Hemoglobin 9.1 g/dL (13.5-17.5); IMMATURE GRAN ABSOLUTE AUTO 0.06 K/mm3 (0.00-0.10); IMMATURE GRAN PERCENT AUTO 1 % (0-1); LYMPHOCYTES ABSOLUTE AUTO 0.14 K/mm3 (0.84-5.20); LYMPHOCYTES PERCENT AUTO 2 % (21-46); MONOCYTES ABSOLUTE AUTO 0.74 K/mm3 (0.16-1.47); MONOCYTES PERCENT AUTO 8 % (4-13); Mean Corpuscular HGB Conc 32.6 g/dL (31.5-36.5); Mean Corpuscular Volume 97 fL (80-100); NEUTROPHILS ABSOLUTE AUTO 8.28 K/mm3 (1.96-9.15); NEUTROPHILS PERCENT AUTO 89 % (41-73); NRBC ABSOLUTE 0.00 K/mm3 (0.00-0.02); NRBC Auto 0.0 /100 WBC (0.0-0.2); Platelet Count 260 K/mm3 (150-400); RDW Coefficient Variation 16.8 % (11.7-14.2); RDW Standard Deviation 58.5 fL (35.1-46.3)
[2025-10-30 12:52] LABS: Prothrombin Time Results 12.9 Sec (9.7-11.5)
[2025-10-30 13:29] LABS: Alanine Aminotransfer (ALT/SGP 15.0 U/L (12-78); Albumin, Blood 2.6 g/dL (3.4-5.0); Albumin/Globulin Ratio 0.7 (0.8-1.8); Anion Gap 20.0 mmol/L (3-11); Aspartate Aminotrans (AST/SGOT 20.0 U/L (12-37); Bilirubin, Total 0.5 mg/dL (0.1-1.0); Blood Urea Nitrogen 74.0 mg/dL (8-24); CO2, Blood 21.0 mmol/L (21-32); Calcium, Blood 9.5 mg/dL (8.5-10.1); Chloride, Blood 100.0 mmol/L (98-108); Creatinine, Blood 16.8 mg/dL (0.60-1.20); Globulin, Blood 3.8 g/dL (2.2-4.0); Glucose, Blood 123.0 mg/dL (70-99); Potassium, Blood 4.9 mmol/L (3.5-5.5); Sodium, Blood 136.0 mmol/L (136-145); Total Protein, Blood 6.4 g/dL (6.4-8.2)
[2025-10-30 14:36] VITALS: BP 172/90
[2025-10-30] MEDS ORDERED: HYDROcodone 10-APAP 325 TAB PO ONE (15:35)
== END 2025-10-30 16:32 | disposition left against medical advice (07) ==
LOC: ER 11:21
PROVIDERS: Emergency Medicine
DX: I21.4 Non-ST elevation (NSTEMI) myocardial infarction (principal); N18.6 End stage renal disease; D63.1 Anemia in chronic kidney disease; Z87.891 Personal history of nicotine dependence; Z99.2 Dependence on renal dialysis; Z53.29 Procedure and treatment not carried out because of patient's decision for other reasons; Z88.8 Allergy status to other drugs, medicaments and biological substances; Z88.1 Allergy status to other antibiotic agents; Z79.899 Other long term (current) drug therapy
CPT/HCPCS: 71250; 74176; 80053; 83605; 84484; 85025; 85610; 86850; 86900; 86901; 93005; 93010; 99285-25; A9270

== ENCOUNTER 2025-11-01 16:37 | Emergency (ER) | payer OTHER ==
[~2025-11-01] VITALS: Ht 172.7 cm; Wt 68.0 kg
[2025-11-01 17:23] LABS: BASOPHILS ABSOLUTE AUTO 0.03 K/mm3 (0.00-0.23); BASOPHILS PERCENT AUTO 0 % (0-2); EOSINOPHILS ABSOLUTE AUTO 0.15 K/mm3 (0.00-0.68); EOSINOPHILS PERCENT AUTO 2 % (0-6); Hematocrit 25.7 % (37.0-53.0); Hemoglobin 8.4 g/dL (13.5-17.5); IMMATURE GRAN ABSOLUTE AUTO 0.10 K/mm3 (0.00-0.10); IMMATURE GRAN PERCENT AUTO 1 % (0-1); LYMPHOCYTES ABSOLUTE AUTO 0.22 K/mm3 (0.84-5.20); LYMPHOCYTES PERCENT AUTO 3 % (21-46); MONOCYTES ABSOLUTE AUTO 0.97 K/mm3 (0.16-1.47); MONOCYTES PERCENT AUTO 11 % (4-13); Mean Corpuscular HGB Conc 32.7 g/dL (31.5-36.5); Mean Corpuscular Volume 95 fL (80-100); NEUTROPHILS ABSOLUTE AUTO 7.43 K/mm3 (1.96-9.15); NEUTROPHILS PERCENT AUTO 84 % (41-73); NRBC ABSOLUTE 0.00 K/mm3 (0.00-0.02); NRBC Auto 0.0 /100 WBC (0.0-0.2); Platelet Count 242 K/mm3 (150-400); RDW Coefficient Variation 16.3 % (11.7-14.2); RDW Standard Deviation 56.1 fL (35.1-46.3)
[2025-11-01 18:00] LABS: Alanine Aminotransfer (ALT/SGP 20.0 U/L (12-78); Albumin, Blood 2.8 g/dL (3.4-5.0); Albumin/Globulin Ratio 0.8 (0.8-1.8); Anion Gap 20.0 mmol/L (3-11); Aspartate Aminotrans (AST/SGOT 28.0 U/L (12-37); Bilirubin, Total 0.5 mg/dL (0.1-1.0); Blood Urea Nitrogen 83.0 mg/dL (8-24); CO2, Blood 20.0 mmol/L (21-32); Calcium, Blood 9.6 mg/dL (8.5-10.1); Chloride, Blood 98.0 mmol/L (98-108); Creatinine, Blood 16.6 mg/dL (0.60-1.20); Globulin, Blood 3.6 g/dL (2.2-4.0); Glucose, Blood 106.0 mg/dL (70-99); Potassium, Blood 4.9 mmol/L (3.5-5.5); Sodium, Blood 133.0 mmol/L (136-145); Total Protein, Blood 6.4 g/dL (6.4-8.2)
[2025-11-01 19:45] VITALS: BP 154/94
[2025-11-01] MEDS ORDERED: Isosorbide Mono30 MG PO (19:54)
== END 2025-11-01 20:35 | disposition home or self-care (01) ==
LOC: ER 16:37
PROVIDERS: Emergency Medicine
DX: R79.89 Other specified abnormal findings of blood chemistry (principal); R07.89 Other chest pain; I12.0 Hypertensive chronic kidney disease with stage 5 chronic kidney disease or end stage renal disease; N18.6 End stage renal disease; D63.1 Anemia in chronic kidney disease; E78.5 Hyperlipidemia, unspecified; K21.9 Gastro-esophageal reflux disease without esophagitis; Z99.2 Dependence on renal dialysis; Z87.891 Personal history of nicotine dependence; Z88.0 Allergy status to penicillin; Z88.8 Allergy status to other drugs, medicaments and biological substances; Z79.82 Long term (current) use of aspirin; Z79.899 Other long term (current) drug therapy
CPT/HCPCS: 80053; 84484; 85025; 99285-25